=== PATIENT | female | born 1975 | race Caucasian/White ===

== ENCOUNTER 2022-07-09 11:41 | Emergency (ER) | payer OTHER ==
[~2022-07-09] VITALS: Ht 165.1 cm; Wt 65.8 kg
[2022-07-09 12:13] VITALS: BP 144/96
[2022-07-09] MEDS ORDERED: IBUP-2213 PO (13:17)
[2022-07-09] MEDS ORDERED: CYCL-711 PO (13:17)
--- NOTE | 2022-07-09 14:10 | NUR ---
Patient discharged with v/s stable. Written and verbal after care instructions given and explained. Patient verbalized understanding. Ambulatory with steady gait. All questions addressed prior to discharge. Advised to follow up with PMD. PT. NO ACUTE DISTRESS. PT. AMB. WITH NO DIFFICULTY
== END 2022-07-09 14:10 | disposition home or self-care (01) ==
LOC: MED 11:41
DX: S16.1XXA Strain of muscle, fascia and tendon at neck level, initial encounter (principal); R20.2 Paresthesia of skin; Z87.448 Personal history of other diseases of urinary system; Z79.899 Other long term (current) drug therapy; Z79.1 Long term (current) use of non-steroidal anti-inflammatories (NSAID); V89.2XXA Person injured in unspecified motor-vehicle accident, traffic, initial encounter; Y93.89 Activity, other specified; Y92.410 Unspecified street and highway as the place of occurrence of the external cause; Y99.8 Other external cause status
CPT/HCPCS: 99281